=== PATIENT | female | born 1990 | race African-American/Black ===

== ENCOUNTER 2017-10-22 23:28 | Emergency (ER) | payer MEDICAID, OTHER ==
[~2017-10-22] VITALS: Ht 167.6 cm; Wt 61.3 kg
[2017-10-23 00:20] VITALS: BP 113/67
== END 2017-10-23 03:45 | disposition home or self-care (01) ==
LOC: ER 23:48
DX: R25.2 Cramp and spasm (principal); N83.209 Unspecified ovarian cyst, unspecified side; Z53.29 Procedure and treatment not carried out because of patient's decision for other reasons; Z98.890 Other specified postprocedural states
CPT/HCPCS: 99283; Z7610

== ENCOUNTER 2025-02-09 23:45 | Emergency (ER) | payer MEDICAID, OTHER ==
[~2025-02-09] VITALS: Ht 172.7 cm; Wt 75.0 kg
[2025-02-09 23:52] VITALS: O2SAT 98
[2025-02-10] MEDS: MORPHINE SULFATE 4 MG/ML INJ (FOR IV/IM USE) IV ONE (00:28)
[2025-02-10] MEDS: ONDANSETRON HCL 4MG/2ML INJ IV ONE (00:28)
[2025-02-10] MEDS: SODIUM CHLORIDE 0.9% 1,000 ML IV ONE (00:28)
[2025-02-10 00:35] LABS: BASOPHILS % 0.4 % (0.0-2.0); EOSINOPHILS % 2.0 % (0.0-5.0); HEMATOCRIT. 23.9 % (36.0-48.0); HEMOGLOBIN. 7.1 g/dL (12.0-16.0); LYMPHOCYTES % 24.3 % (20.0-50.0); MEAN PLATELET VOLUME 8.8 fl (7.4-10.4); MONOCYTES % 4.9 % (2.0-8.0); NEUTROPHILS % 68.4 % (40.0-76.0); PLATELET 459 x1000/uL (130-400); RED BLOOD CELL COUNT 4.21 mill/uL (4.2-5.4); RED CELL DISTRIBUTION WIDTH 21.5 % (11.6-14.6)
[2025-02-10 00:39] LABS: ADD RBC MORPHOLOGY YES
[2025-02-10 00:51] LABS: INR 1.1
[2025-02-10 00:52] LABS: HCG SCREEN NEGATIVE
[2025-02-10 01:30] LABS: CREATININE 1.1 mg/dL (0.6-1.0); UREA NITROGEN BLOOD 10 mg/dL (9-23)
[2025-02-10 01:32] LABS: B-HCG QUANTITATIVE < 1 mIU/mL (<6)
[2025-02-10] MEDS ORDERED: NAPR-1164 MT (01:34)
[2025-02-10 01:35] LABS: CLARITY URINE CLEAR (CLEAR); COLOR URINE YELLOW (YELLOW); PH URINE 6.0 (4.5-8.0); SPECIFIC GRAVITY URINE 1.005 (1.005-1.030)
[2025-02-10 01:36] LABS: GLUCOSE URINE NEGATIVE (NEGATIVE); KETONES URINE NEGATIVE (NEGATIVE); LEUKOCYTE ESTERASE URINE NEGATIVE (NEGATIVE); NITRITE URINE NEGATIVE (NEGATIVE); OCCULT BLOOD URINE NEGATIVE (NEGATIVE); PROTEIN URINE NEGATIVE (NEGATIVE); UROBILINOGEN URINE 0.2 E.U./dL (0.2-1.0)
[2025-02-10 04:26] LABS: PLATELET ESTIMATE SLIGHTLY INCREASED
[2025-02-10 04:36] VITALS: BP 121/71; PULSE 86; RESP 16; TEMP 36.8; O2SAT 100
== END 2025-02-10 04:41 | disposition home or self-care (01) ==
LOC: ER 23:45
DX: R10.32 Left lower quadrant pain (principal); D64.9 Anemia, unspecified
CPT/HCPCS: 81025; 36415; 99285; 80048; 81003; 84703; 84702; 85025; 85610; 85730; 86850; 86900; 86901; 76830; 76856; 96361; 96374; 96375; J2405; J2270; J7030; Z7610